=== PATIENT | female | born 1990 | race Caucasian/White ===

== ENCOUNTER 2017-08-20 16:49 | Emergency (ER) | payer SELFPAY ==
[~2017-08-20] VITALS: Wt 87.9 kg
[~2017-08-20 16:49] MED LIST: IBUP800T25 PO
== END 2017-08-20 19:05 | disposition left against medical advice (07) ==
LOC: FTE 16:49
DX: Z53.21 Procedure and treatment not carried out due to patient leaving prior to being seen by health care provider (principal)